=== PATIENT | female | born 1965 | race Caucasian/White ===

== ENCOUNTER → 2023-06-28 | Outpatient (REF) | payer MEDICAID, SELFPAY ==
[2023-06-28 10:12] LABS: Hematocrit 31.9 % (37-47); Hemoglobin 9.8 g/dL (12.0-15.0); Mean Corp Hgb Conc 30.7 g/dL (32-36); Mean Corpuscular Hgb 29.6 pg (27.0-32.0); Mean Corpuscular Volume 96.4 fL (81-99); Mean Platelet Vol. 9.8 fl (6.2-12.0); POSITIVE COUNT YES; RBC Distribution Width CV 17.9 % (11.6-14.6); RBC Distribution Width SD 62.9 fl (35.1-43.9); Red Blood Count 3.31 M/mm3 (4.2-5.4); White Blood Count 6.9 K/mm3 (4.4-11.0)
[2023-06-28 10:32] LABS: ALB/GLOB Ratio 0.4 RATIO (0.9-2.4); AST(SGOT) 14 U/L (15-37); Alanine Aminotransfer ALT/SGPT 11 U/L (13-56); Alkaline Phosphatase 107 U/L (45-117); Anion Gap 6 (5-15); BUN 35 mg/dL (7-18); BUN/Creat Ratio 16.4 RATIO (10-20); Chloride 106 mmol/L (98-107); Creatinine, Serum 2.14 mg/dL (0.55-1.02); EST Glomerular Filtration Rate 25 mL/min (>60); Est Glom Filt Rate - Afr Amer 30 mL/min (>60); Globulin 5.2 g/dL (2.2-4.2); Glucose 77 mg/dL (74-106); Potassium 4.4 mmol/L (3.5-5.1); Protein, Total 7.2 g/dL (6.4-8.2); Sodium Level 137 mmol/L (136-145)
[2023-06-28 10:59] LABS: Platelet Count 854 K/mm3 (150-450); Scan Indicated on CBC? Y/N YES- FLAGS NOTED
[2023-06-28 11:00] LABS: Differential Comment SCANNED
[2023-06-29 15:50] LABS: Pathologist Review Reviewed
== END | disposition home or self-care (01) ==
LOC: OLS.SANC 06:00
PROVIDERS: Referring Provider Internal Medicine; Visit Provider Internal Medicine
DX: D64.9 Anemia, unspecified (principal); K59.31 Toxic megacolon; C54.1 Malignant neoplasm of endometrium
CPT/HCPCS: 36415; 80053; 85027